=== PATIENT | male | born 1945 | race Caucasian/White ===

== ENCOUNTER → 2019-05-28 | Outpatient (CLI) | payer MEDICARE, OTHER ==
--- NOTE | 2019-05-28 09:21 | REP ---
Clinical: Cough . Comparison: 05/30/2005 . Technique: PA and lateral. Findings: The mediastinum and cardiac silhouette are normal. The lung patel are clear and without acute consolidation, effusion, or pneumothorax. The skeletal structures are intact and normal. Impression: 1. No acute cardiopulmonary process. Electronically Signed by Eliezer Carranza MD 05/28/2019 09:12 A
== END ==
LOC: M WUC 08:52
PROVIDERS: ATTEND Internal Medicine
DX: R05 Cough (principal)